=== PATIENT | male | born 1950 | race African-American/Black ===

== ENCOUNTER 2024-01-29 10:33 | Outpatient (REF) | payer MEDICARE, MEDICAID, SELFPAY ==
[2024-01-29 11:31] LABS: MANUAL DIFF FLAG NO
[2024-01-29 11:53] LABS: Basophils Percent Auto 0.2 % (0-2); Eosinophils Absolute Auto 0.2 X10*3/uL (0.0-0.4); Eosinophils Percent Auto 1.4 % (0-4); Hematocrit 39.1 % (42.0-52.0); Hemoglobin 12.9 g/dl (14.0-18.0); Imm Gran Abs Auto 0.03 X10*3/uL (0.00-0.03); Imm Gran Pct Auto 0.3 % (0.0-0.4); Lymphocytes Absolute Auto 2.4 X10*3/uL (1.2-4.9); Lymphocytes Percent Auto 22.8 % (20-40); Mean Corpuscular Hemoglobin 29.7 pg (27.0-33.0); Mean Corpuscular Volume 90.1 fL (80.0-98.0); Mean Platelet Volume 9.9 fL (9.4-12.4); Monocytes Absolute Auto 0.9 X10*3/uL (0.1-1.2); Monocytes Percent Auto 8.8 % (2-11); Neutrophils Percent Auto 66.5 % (45-73); Platelet Count 349 X10*3/uL (160-400); Red Blood Count 4.34 X10*6/uL (4.60-5.80); Red Cell Distribution Width 13.5 % (11.0-16.0); White Blood Count 10.5 X10*3/uL (4.8-10.8)
[2024-01-29 12:33] LABS: Alanine Aminotransferase 13 U/L (0-40); Albumin Level 3.7 g/dL (3.5-5.0); Alkaline Phosphatase 77 U/L (39-117); Anion Gap 10 (12-20); Aspartate Amino Transferase 17 U/L (5-37); Bilirubin Direct 0.1 mg/dL (0.0-0.5); Bilirubin Total 0.5 mg/dL (0.0-1.0); Blood Urea Nitrogen 23 mg/dL (9-16); Calcium 9.1 mg/dL (8.4-10.2); Carbon Dioxide 26 mmol/L (22-29); Chloride 107 mmol/L (96-108); Cholesterol 154 mg/dL (<200); Estimated Glomerular Filt Rate 39; Glucose Random 78 mg/dL (60-115); HDL Cholesterol 45 mg/dL (>40); LDL Cholesterol Calculated 88 mg/dL (<100); Magnesium 2.2 mg/dL (1.6-2.6); Potassium 4.4 mmol/L (3.3-5.1); Sodium 139 mmol/L (135-145); TSH reflex Free T4 0.87 uIU/mL (0.32-4.0); Total Protein 6.9 g/dL (6.5-8.0); Triglycerides 105 mg/dL (<150)
[2024-01-29 12:44] LABS: Folate 6.7 ng/mL (> or = 4.0); Vitamin B12 378 pg/mL (200-900)
[2024-01-31 09:38] LABS: RPR Rapid Plasma Reagin NON-REACTIVE (NON-REACTIVE)
== END 2024-01-29 10:34 | disposition home or self-care (01) ==
LOC: HO.HHCL 10:33
PROVIDERS: Visit Provider Family Medicine
DX: I10 Essential (primary) hypertension (principal); R41.3 Other amnesia; Z11.3 Encounter for screening for infections with a predominantly sexual mode of transmission; F10.90 Alcohol use, unspecified, uncomplicated; D36.9 Benign neoplasm, unspecified site
CPT/HCPCS: 36415; 80048; 80061; 80076; 82607; 82746; 83735; 84443; 85025; 86592

== ENCOUNTER 2024-08-05 11:06 | Emergency (ER) | payer MEDICARE, MEDICAID, SELFPAY ==
--- NOTE | ~2024-08-05 | XR_ITS ---
EXAMINATION: XR FOOT, LEFT CLINICAL INFORMATION: infection COMPARISON: 10/24/2019. TECHNIQUE: AP, lateral, and oblique views of the left foot. FINDINGS: No fracture, dislocation, or suspicious bone lesion. Normal bone mineralization. Moderate hallux valgus with spurring of the medial eminence of the first metatarsal head. Mild pes planus. Tiny spurs of the dorsal and plantar calcaneus. Mild soft tissue swelling overlying the first MTP joint. XR/XR foot LT min 3V IMPRESSION: 1. No acute bony abnormalities. 2. Moderate hallux valgus with spurring of the medial eminence of the first metatarsal head. Mild associated soft tissue swelling. Electronically signed by: Baldomero Varela MD 08/05/2024 12:31 PM EDT
[2024-08-05 11:52] VITALS: BP 178/109; PULSE 101; RESP 20; TEMP 36.6; O2SAT 100; BMI 19.7
--- NOTE | 2024-08-05 11:54 | ED.GENADULT ---
HPI - General Adult General Chief complaint: Extremity Injury, Lower Stated complaint: gout l foot Time Seen by Provider: 08/05/24 20:07 Source: patient Limitations: no limitations History of Present Illness ED Provider: Maricarmen Power PA-C Related Data Previous Rx's ?Medication ?Instructions ?Recorded cephalexin 500 mg capsule 500 mg PO BID #13 caps 08/05/24 prednisone 5 mg tablets in a dose 5 mg PO DIRECTED #21 ea 08/05/24 pack Allergies Allergy/AdvReac Type Severity Reaction Status Date / Time No Known Allergies Allergy Verified 08/05/24 11:55 Review of Systems Review of Systems: Yes all other systems are reviewed and are negative Constitutional: Constitutional: Denies fatigue and Denies fever(s) Cardiovascular: Cardiovascular: Denies chest pain and Denies dyspnea Respiratory: Respiratory: Denies dyspnea Musculoskeletal: Musculoskeletal: Reports arthralgias, Reports joint swelling and Reports stiffness Integumentary/Breasts: Skin/Breast: Reports erythema Endocrine: Endocrine: Denies fatigue PMFSH Past Medical History Attestation statement: The following information was validated with the patient. Social History Social History Alcohol intake: never Smoked in Last 30 Days: No Use of substances other than those prescribed or required for medical reasons: No Advance Directives: No Advance Directives Information Provided: Yes Do you have a plan to hurt others: No Plan Physical Exam ED Vital Signs: Vital Signs - 24 hr 08/05/24 11:52 08/05/24 19:51 08/05/24 19:56 Temperature 97.9 F 98.2 F 98.2 F Pulse Rate 101 H 117 H 117 H Respiratory Rate 20 18 18 Blood Pressure 178/109 H 161/103 H 161/103 H Pulse Oximetry 100 99 99 Oxygen Delivery Method Room Air Room Air Room Air 08/05/24 20:11 Temperature 98.2 F Pulse Rate 117 H Respiratory Rate 18 Blood Pressure 161/103 H Pulse Oximetry 99 Oxygen Delivery Method Room Air BMI result Body Mass Index 19.7 Const Other: Alert Orientation/consciousness: patient oriented x3 Resp Effort & Inspection: normal respiratory effort Cardio Other: Normal peripheral perfusion Skin Other: Warm dry no rash Neuro General: patient oriented x3, gait normal, no focal motor deficits and CN's II-XI intact bilaterally Extrem Other: Swelling noted inferior to the great toe that is medial, tender to palpation, overlying warmth and erythema, Psych Other: Calm cooperative Course Course Course Narrative: This is a rapid medical exam performed by Maricarmen Power PA-C. The patient is a 73-year-old male with a history of gout who presents with left great toe/foot pain x5 days. Patient was concerned for gout flare. No fevers. On exam there is a tender swelling lateral left great toe. Plan to screen basic labs inflammatory markers uric acid and obtain an x-ray. The patient was stable and can return to the waiting room pending his full medical assessment. Medications Administered Discontinued Medications Generic Name Dose Route Start Last Admin Trade Name Freq PRN Reason Stop Dose Admin Cephalexin HCl 500 mg 08/05/24 19:55 08/05/24 20:08 Cephalexin 500 Mg Capsule PO 08/05/24 19:56 500 mg ONCE ONE Administration Prednisone 10 mg 08/05/24 19:55 08/05/24 20:08 Prednisone 10 Mg Tablet PO 08/05/24 19:56 10 mg ONCE ONE Administration Medical Decision Making Medical Decision Making MDM Narrative: 73-year-old male with a history of gout who presents with left great toe/foot pain x5 days. Patient was concerned for gout flare. No fevers. Problem: Gout History: Per patient I have considered the following differential diagnoses: Cellulitis, gout, septic effusion, arthritis, fracture, dislocation Plan: Patient here with a atraumatic foot pain, that is likely a gout flare. Hard to determine if this could be brewing cellulitis as well. Screening labs including inflammatory markers and uric acid levels we will be obtained as well as an x-ray. We will treat concurrently for gout flare versus cellulitis. Do not believe this is a septic arthritis, the patient was afebrile, again his inflammatory markers and minimally elevated, he can move the joint there was no effusion. I have independently reviewed the following tests: Labs: Slight leukocytosis, not anemic, no electrolyte abnormality, inflammatory markers minimally elevated. Uric acid elevated at 8.9 X-ray left foot: XR/XR foot LT min 3V IMPRESSION: 1. No acute bony abnormalities. 2. Moderate hallux valgus with spurring of the medial eminence of the first metatarsal head. Mild associated soft tissue swelling. Lab Data 08/05/24 12:26 08/05/24 12:26 Labs: Lab Results 08/05/24 Range/Units 12:26 WBC 14.4 H (4.8-10.8) X10*3/uL RBC 4.45 L (4.60-5.80) X10*6/uL Hgb 13.3 L (14.0-18.0) g/dl Hct 40.0 L (42.0-52.0) % MCV 89.9 (80.0-98.0) fL MCH 29.9 (27.0-33.0) pg MCHC 33.3 (31.0-36.0) g/dl RDW 13.2 (11.0-16.0) % Plt Count 367 (160-400) X10*3/uL MPV 9.4 (9.4-12.4) fL Immature Gran % (Auto) 0.4 (0.0-0.4) % Neut % (Auto) 79.6 H (45-73) % Lymph % (Auto) 12.2 L (20-40) % Lander % (Auto) 7.0 (2-11) % Eos % (Auto) 0.6 (0-4) % Baso % (Auto) 0.2 (0-2) % Lymph # (Auto) 1.8 (1.2-4.9) X10*3/uL Lander # (Auto) 1.0 (0.1-1.2) X10*3/uL Eos # (Auto) 0.1 (0.0-0.4) X10*3/uL Baso # (Auto) 0.0 (0.0-0.2) X10*3/uL Abs Immat Gran (auto) 0.06 H (0.00-0.03) X10*3/uL Absolute Neuts (auto) 11.4 H (2.0-8.3) x10*3/uL Absolute Nucleated RBC 0.000 (0.0-0.012) X10*3/uL Nucleated RBC % (auto) 0.0 (0.0-0.2) /100WBC ESR 26 H (0-15) MM/HR Sodium 142 (135-145) mmol/L Potassium 3.9 (3.3-5.1) mmol/L Chloride 109 H (96-108) mmol/L Carbon Dioxide 25 (22-29) mmol/L Anion Gap 12 (12-20) BUN 12 (9-16) mg/dL Creatinine 1.52 H (0.5-1.4) mg/dL Estim Creat Clear Calc 40.2 Estimated GFR 45 Random Glucose 86 (60-115) mg/dL Uric Acid 8.9 H (3.4-7.0) mg/dL Calcium 9.0 (8.4-10.2) mg/dL Magnesium 2.0 (1.6-2.6) mg/dL Total Bilirubin 0.7 (0.0-1.0) mg/dL AST 24 (5-37) U/L ALT 10 (0-40) U/L Alkaline Phosphatase 84 (39-117) U/L C-Reactive Protein 0.22 (< or = 0.50) mg/dL Total Protein 7.4 (6.5-8.0) g/dL Albumin 3.9 (3.5-5.0) g/dL Discharge Plan Discharge Clinical Impression: Cellulitis, Gout flare Patient Disposition: Home, Self-Care Instructions: Cellulitis (ED), Low Purine Diet (ED), Gout (ED) Additional Instructions: The x-ray revealed that you have considerable arthritic changes of the foot and toe joint. We are treating you for suspect gout flare and potential early cellulitis. Take the cephalexin as directed, take the steroid taper as directed. Follow up with your primary care provider within the week for a recheck of the foot. Prescriptions: New prednisone 5 mg tablets,dose pack 5 mg PO DIRECTED Qty: 21 0RF Rx Instructions: see taper instructions cephalexin 500 mg capsule 500 mg PO BID Qty: 13 0RF Interventions: ED Discharge Assessment Last Done: 08/05/24 20:11 Discharge Date/Time: 08/05/24 20:12 Print Language: Upper Sorbian
[2024-08-05 12:34] LABS: MANUAL DIFF FLAG NO
[2024-08-05 12:37] LABS: Basophils Percent Auto 0.2 % (0-2); Eosinophils Absolute Auto 0.1 X10*3/uL (0.0-0.4); Eosinophils Percent Auto 0.6 % (0-4); Hemoglobin 13.3 g/dl (14.0-18.0); Imm Gran Abs Auto 0.06 X10*3/uL (0.00-0.03); Imm Gran Pct Auto 0.4 % (0.0-0.4); Lymphocytes Absolute Auto 1.8 X10*3/uL (1.2-4.9); Lymphocytes Percent Auto 12.2 % (20-40); Mean Corpuscular HGB Conc 33.3 g/dl (31.0-36.0); Mean Corpuscular Hemoglobin 29.9 pg (27.0-33.0); Mean Corpuscular Volume 89.9 fL (80.0-98.0); Mean Platelet Volume 9.4 fL (9.4-12.4); Neutrophils Absolute Auto 11.4 x10*3/uL (2.0-8.3); Neutrophils Percent Auto 79.6 % (45-73); Platelet Count 367 X10*3/uL (160-400); Red Blood Count 4.45 X10*6/uL (4.60-5.80); Red Cell Distribution Width 13.2 % (11.0-16.0); White Blood Count 14.4 X10*3/uL (4.8-10.8)
[2024-08-05 12:50] LABS: Alanine Aminotransferase 10 U/L (0-40); Albumin Level 3.9 g/dL (3.5-5.0); Alkaline Phosphatase 84 U/L (39-117); Anion Gap 12 (12-20); Aspartate Amino Transferase 24 U/L (5-37); Bilirubin Total 0.7 mg/dL (0.0-1.0); Blood Urea Nitrogen 12 mg/dL (9-16); C Reactive Protein 0.22 mg/dL (< or = 0.50); Carbon Dioxide 25 mmol/L (22-29); Chloride 109 mmol/L (96-108); Creatinine Clr Calc Pharmacy 40.2; Estimated Glomerular Filt Rate 45; Glucose Random 86 mg/dL (60-115); Potassium 3.9 mmol/L (3.3-5.1); Sodium 142 mmol/L (135-145); Total Protein 7.4 g/dL (6.5-8.0); Uric Acid 8.9 mg/dL (3.4-7.0)
[2024-08-05 13:15] LABS: Erythrocyte Sedimentation Rate 26 MM/HR (0-15)
[2024-08-05 19:51] VITALS: BP 161/103; PULSE 117; RESP 18; TEMP 36.8; O2SAT 99
[2024-08-05 19:56] VITALS: BP 161/103; PULSE 117; RESP 18; TEMP 36.8; O2SAT 99
[2024-08-05] MEDS: cephALEXin 500 MG CAPSULE PO (20:08)
[2024-08-05] MEDS: predniSONE 10 MG TABLET PO (20:08)
--- NOTE | 2024-08-05 20:09 | PC.NURSE ---
Pt reeval by [facility] provider, medicated and cleared for dc home.
[2024-08-05 20:11] VITALS: BP 161/103; PULSE 117; RESP 18; TEMP 36.8; O2SAT 99
== END 2024-08-05 20:12 | disposition home or self-care (01) ==
PROVIDERS: Physician Assistant Medical; Emergency Provider Emergency Medicine Emergency Medical Services; PCP Family Medicine
DX: M10.072 Idiopathic gout, left ankle and foot (principal); M79.675 Pain in left toe(s); L03.032 Cellulitis of left toe; Z79.899 Other long term (current) drug therapy
CPT/HCPCS: 36415; 73630; 80053; 83735; 84550; 85025; 85652; 86140; 99283; 99284

== ENCOUNTER → 2024-08-05 11:54 | Outpatient (BNV) | payer MEDICARE, MEDICAID, SELFPAY | PROVIDERS: PCP Family Medicine; Visit Provider Radiology Diagnostic Radiology | DX: M79.672 Pain in left foot (principal) | CPT/HCPCS: 73630 ==